=== PATIENT | male | born 1960 | race Caucasian/White ===

== ENCOUNTER 2018-10-07 11:30 | Outpatient (RCR) | payer OTHER | END 2018-10-07 12:00 | disposition home or self-care (01) | LOC: PT 11:30 | DX: Z98.890 Other specified postprocedural states (principal); Z96.651 Presence of right artificial knee joint; Z47.89 Encounter for other orthopedic aftercare ==

== ENCOUNTER 2019-04-17 19:15 | Emergency (ER) | payer OTHER ==
[2019-04-17] MEDS ORDERED: NAPROXEN SOD550 MG PO (19:29)
[2019-04-17] MEDS ORDERED: SERTRALINE HYD100 MG PO (19:29)
[2019-04-17] MEDS ORDERED: SINGULAIR PO (19:29)
[2019-04-17] MEDS ORDERED: ATARAX 10MG10 MG/TAB PO (19:30)
[2019-04-17 20:41] VITALS: BP 142/71
== END 2019-04-17 20:40 | disposition home or self-care (01) ==
LOC: ED 19:15
DX: S60.032A Contusion of left middle finger without damage to nail, initial encounter (principal); S60.041A Contusion of right ring finger without damage to nail, initial encounter; Z90.49 Acquired absence of other specified parts of digestive tract; W20.8XXA Other cause of strike by thrown, projected or falling object, initial encounter; Y92.009 Unspecified place in unspecified non-institutional (private) residence as the place of occurrence of the external cause